=== PATIENT | male | born 1980 | race African-American/Black ===

== ENCOUNTER 2021-03-30 10:50 | Emergency (ER) | payer MEDICAID ==
[~2021-03-30] VITALS: Ht 172.7 cm; Wt 111.4 kg
[~2021-03-30 10:50] MED LIST: QUET100T PO; TOPI25 PO
[2021-03-30] MEDS ORDERED: ACET325S20 PR (10:53)
[2021-03-30] MEDS ORDERED: IBUP200C5 PO (10:53)
[2021-03-30 10:54] VITALS: BP 150/86
== END 2021-03-30 14:06 | disposition home or self-care (01) ==
LOC: EMS 10:53
DX: H60.91 Unspecified otitis externa, right ear (principal); H66.91 Otitis media, unspecified, right ear; F20.9 Schizophrenia, unspecified; Z79.899 Other long term (current) drug therapy
CPT/HCPCS: 99283